=== PATIENT | male | born 2000 | race African-American/Black ===

== ENCOUNTER 2023-09-15 18:17 | Emergency (ER) | payer BC, MEDICAID ==
[~2023-09-15] VITALS: Ht 182.9 cm; Wt 105.0 kg
[2023-09-15 18:32] VITALS: BP 141/99; RESP 18; TEMP 98.1; O2SAT 100
[2023-09-15 18:35] VITALS: PULSE 82
== END 2023-09-16 00:39 | disposition left against medical advice (07) ==
LOC: ER 18:17
DX: M79.674 Pain in right toe(s) (principal); Z53.21 Procedure and treatment not carried out due to patient leaving prior to being seen by health care provider
CPT/HCPCS: 99281